=== PATIENT | male | born 1980 | race American Indian/Alaskan Native ===

== ENCOUNTER 2017-07-01 20:14 | Emergency (ER) | payer OTHER ==
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
[2017-07-01] MEDS ORDERED: TORADOL IM ONE (23:51)
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
[2017-07-02 04:00] VITALS: BP 109/70
== END 2017-07-02 01:18 | disposition home or self-care (01) ==
LOC: ED 20:14
DX: M25.511 Pain in right shoulder (principal); M62.830 Muscle spasm of back; V89.2XXA Person injured in unspecified motor-vehicle accident, traffic, initial encounter; Y93.9 Activity, unspecified; Y92.410 Unspecified street and highway as the place of occurrence of the external cause; Y99.9 Unspecified external cause status
CPT/HCPCS: 73030; 96372; 99283; J1885